=== PATIENT | male | born 1955 | race Caucasian/White ===

== ENCOUNTER 2016-08-02 08:30 | Inpatient (IN) | payer BC, OTHER ==
[2016-07-11 10:53] VITALS: BMI 33.2
[2016-07-11 11:27] VITALS: BP_SYST 130; RESP 20; TEMP 98.2
[2016-07-25 10:37] VITALS: BP_SYST 130; RESP 20; TEMP 98.2
[2016-07-25 12:01] VITALS: Ht 172.7 cm; Wt 98.9 kg
[~2016-08-02] VITALS: Ht 172.7 cm; Wt 98.9 kg
[2016-08-02] VITALS (24 sets, daily range): BP systolic 110–157; RESP 10–27; TEMP 97.2–99
[~2016-08-02 08:30] MED LIST: ACETAMINOPHEN 1,000 MG/100 ML IV ONE; DILAUDID 1 MG/ML AMP IV ONE; FENTANYL 100 MCG/2 ML AMP IV ONE; GLYCOPYRROLATE 0.2 MG/ML VIAL IV ONE; KETAMINE INJ 50 MG/ML VIAL IV ONE; LIDOCAINE 2% SYR 5 ML IV ONE; NEOSTIGMINE 10 MG/10 ML VIAL IV ONE; ONDANSETRON 4 MG VIAL IV PUSH ONE; PROPOFOL 50ML VIAL IV ONE
[2016-08-02] MEDS ORDERED: BACITRACIN 50,000 UNITS INJ IRRIG ONE (10:47)
[2016-08-02] MEDS ORDERED: CEFAZOLIN 2,000 MG in SODIUM CHLORIDE 0.9% 100 ML IV ONE (11:05)
[2016-08-02] MEDS ORDERED: ROPIVACAINE 0.5% 139 MG, EPINEPHrine 1:1,000 0.2 MG, KETOROLAC INJ 30 MG, MORPHINE 10 MG SUBQ ONE ×4 (11:10)
[2016-08-02] MEDS ORDERED: SODIUM CHLORIDE 0.9% IV ONE ×4 (11:20)
[2016-08-02] MEDS ORDERED: TRANEXAMIC ACID IV ONE ×4 (11:20)
[2016-08-02] MEDS ORDERED: LACT RINGERS 1,000 ML IV SCH ×2 (11:20→14:40)
[2016-08-02] MEDS ORDERED: LIDOCAINE 1% BUFFERED 1 ML SYR INTRADERM PRN (11:20)
[2016-08-02] MEDS ORDERED: MIDAZOLAM 2 MG/2 ML INJ IV ONE ×2 (11:20→12:20)
[2016-08-02] MEDS ORDERED: GLYCOPYRROLATE 0.2 MG/ML VIAL IV ONE (11:20)
[2016-08-02] MEDS ORDERED: MEPERIDINE 25 MG/ML IV ONE (12:20)
[2016-08-02] MEDS ORDERED: LIDOCAINE 1% MDV 20 ML ONE (12:31)
[2016-08-02] MEDS ORDERED: LIDOCAINE 1% 20ML NERVEBLOCK ONE (13:00)
[2016-08-02] MEDS ORDERED: MEPERIDINE 25 MG/ML IV PRN (13:50)
[2016-08-02] MEDS ORDERED: MORPHINE 2 MG/ML SYR IV PRN ×2 (13:50→14:40)
[2016-08-02] MEDS ORDERED: OXYCODONE 5 MG TAB PO PRN (13:50)
[2016-08-02] MEDS ORDERED: ONDANSETRON 4 MG VIAL IV PRN ×2 (13:50→14:40)
[2016-08-02] MEDS ORDERED: MORPHINE 4 MG/ML SYR IV PRN ×2 (13:50→14:40)
[2016-08-02] MEDS ORDERED: BUPIVACA/EPI 0.5% 50ML EPIDURAL ONE (14:00)
[2016-08-02] MEDS ORDERED: ACETAMINOPHEN 325 MG TAB PO PRN (14:40)
[2016-08-02] MEDS ORDERED: TEMAZEPAM 15 MG CAP PO PRN (14:40)
[2016-08-02] MEDS ORDERED: DIPHENHYDRAMINE 25 MG CAP PO PRN (14:40)
[2016-08-02] MEDS: DILAUDID 1 MG/ML AMP IV PRN ×2 (14:58→15:19)
[2016-08-02] MEDS: KETOROLAC 30 MG/ML VIAL IV PRN ×2 (16:39→23:46)
[2016-08-02] MEDS: CEFAZOLIN 2,000 MG in SODIUM CHLORIDE 0.9% 100 ML IV SCH (18:06)
[2016-08-02] MEDS: DOCUSATE SOD 100 MG CAP PO SCH (21:17)
[2016-08-02] MEDS: FAMOTIDINE 20 MG TAB PO SCH (21:17)
[2016-08-02] MEDS: METFORMIN 500 MG TAB PO SCH (21:17)
[2016-08-02] MEDS: OMEGA 3 FATTY ACIDS 1 GM CAP PO SCH (21:17)
[2016-08-02] MEDS: LISINOPRIL 5 MG TAB PO SCH (21:17)
[2016-08-03] MEDS: CEFAZOLIN 2,000 MG in SODIUM CHLORIDE 0.9% 100 ML IV SCH ×3 (00:52→13:08)
[2016-08-03 04:16] VITALS: BP_SYST 148; RESP 20; TEMP 99.1
[2016-08-03] MEDS: FONDAPARINUX 2.5 MG SYR SUBQ SCH (05:27)
[2016-08-03] MEDS: KETOROLAC 30 MG/ML VIAL IV PRN ×3 (07:22→22:06)
[2016-08-03] MEDS ORDERED: MISSING DOSE XX ONE (07:45)
[2016-08-03 07:59] VITALS: BP_SYST 121; RESP 16; TEMP 99.7
[2016-08-03] MEDS: DOCUSATE SOD 100 MG CAP PO SCH ×2 (08:58→22:19)
[2016-08-03] MEDS: OMEGA 3 FATTY ACIDS 1 GM CAP PO SCH ×2 (08:59→22:18)
[2016-08-03] MEDS: METFORMIN 500 MG TAB PO SCH ×2 (08:59→22:19)
[2016-08-03] MEDS: LISINOPRIL 5 MG TAB PO SCH (09:00)
[2016-08-03] MEDS: MAG HYDROX 30 ML UDC PO SCH (09:00)
[2016-08-03] MEDS: FAMOTIDINE 20 MG TAB PO SCH ×2 (09:00→22:19)
[2016-08-03 12:13] VITALS: BP_SYST 125; RESP 18; TEMP 99
[2016-08-03 15:38] VITALS: BP_SYST 121; RESP 20; TEMP 99.5
[2016-08-03 20:00] VITALS: BP_SYST 142; RESP 16; TEMP 99.6
[2016-08-03] MEDS: DILAUDID 1 MG/ML AMP IV PRN ×2 (22:06→23:55)
[2016-08-03 22:27] VITALS: BP_SYST 125; RESP 18; TEMP 99.8
[2016-08-04] MEDS: DILAUDID 1 MG/ML AMP IV PRN ×4 (02:46→07:54)
[2016-08-04 03:03] VITALS: BP_SYST 105; RESP 16; TEMP 99.4
[2016-08-04] MEDS: KETOROLAC 30 MG/ML VIAL IV PRN (04:54)
[2016-08-04] MEDS: FONDAPARINUX 2.5 MG SYR SUBQ SCH (06:18)
[2016-08-04 07:53] VITALS: BP_SYST 116; RESP 20; TEMP 98.3
[2016-08-04] MEDS: MAG HYDROX 30 ML UDC PO SCH (09:50)
[2016-08-04] MEDS: LISINOPRIL 5 MG TAB PO SCH (09:50)
[2016-08-04] MEDS: DOCUSATE SOD 100 MG CAP PO SCH (09:50)
[2016-08-04] MEDS: METFORMIN 500 MG TAB PO SCH (09:50)
[2016-08-04] MEDS: FAMOTIDINE 20 MG TAB PO SCH (09:50)
[2016-08-04] MEDS: OMEGA 3 FATTY ACIDS 1 GM CAP PO SCH (09:50)
[2016-08-04 11:35] VITALS: BP_SYST 116; RESP 16; TEMP 98.3
[2016-08-04 12:47] VITALS: BP_SYST 123; RESP 18; TEMP 99.1
== END 2016-08-04 14:41 | disposition home health service (06) | DRG 470 ==
LOC: ENRESERVDT → ENRESERVTM → ENPENDDIS 11:10 → SDS 11:10 → 2NO 15:56
PROVIDERS: ADMIT Internal Medicine; ATTEND Internal Medicine
PROC: 3E0T3BZ Introduction of Anesthetic Agent into Peripheral Nerves and Plexi, Percutaneous Approach (ICD-10-PCS; 2016-08-02)
PROC: 0SRD0J9 Replacement of Left Knee Joint with Synthetic Substitute, Cemented, Open Approach (ICD-10-PCS; principal; 2016-08-02 12:20)
DX: M17.12 Unilateral primary osteoarthritis, left knee (principal); I10 Essential (primary) hypertension; E11.9 Type 2 diabetes mellitus without complications; Z79.84 Long term (current) use of oral hypoglycemic drugs; F17.220 Nicotine dependence, chewing tobacco, uncomplicated; Z79.82 Long term (current) use of aspirin
CPT/HCPCS: 80053; 82947; 85025; 86850; 86900; 86901; 94762; 94799